=== PATIENT | female | born 1965 | race Two or more races ===

== ENCOUNTER 2023-09-02 22:31 | Emergency (ER) | payer OTHER ==
[~2023-09-02] VITALS: Ht 154.9 cm; Wt 77.1 kg
[2023-09-02] MEDS ORDERED: FAMOtidine 10 MG/ML (4ML VIAL) IV PUSH ONE (22:45)
[2023-09-02] MEDS ORDERED: HYOSCYAMINE SULFATE 0.125 MG TAB.SUBL SL ONE (22:45)
[2023-09-02] MEDS ORDERED: ONDANSETRON HCL 2 MG/ML VIAL IV ONE (22:45)
[2023-09-02] MEDS ORDERED: 0.9 % SODIUM CHLORIDE 1,000 ML IV ONE (22:45)
[2023-09-02] MEDS ORDERED: PROMETHAZINE HCL 50 MG/ML AMPUL IM ONE (23:30)
[2023-09-03 00:07] LABS: HEMATOCRIT 39.5 % (36.0-45.00); HEMOGLOBIN 13.2 g/dL (12.0-15.00); MEAN CELL VOLUME 89.5 fL (80.00-100.00); MEAN CORPUSCULAR HEMOGLOBIN 29.8 pg (27.00-32.0); MEAN CORPUSCULAR HGB CONC 33.3 g/dl (32.0-36.0); PLATELET COUNT 358 K/uL (150-450); RED BLOOD COUNT 4.42 M/uL (4.00-6.00); RED CELL DISTRIBUTION WIDTH 13.5 % (11.5-14.5)
[2023-09-03 00:33] LABS: ALBUMIN 4.3 gm/dL (3.4-5.0); BILIRUBIN TOTAL 0.53 mg/dL (0.3-1.2); CALCIUM 10.3 mg/dL (8.5-10.1); CREATININE SERUM 0.93 mg/dL (0.55-1.02); GFR 61.49; GLOBULINA 4.3 G/DL (2.4-3.5); POTASSIUM 3.25 mEq/L (3.5-5.1); TOTAL PROTEIN 8.6 gm/dL (6.4-8.2)
[2023-09-03] MEDS ORDERED: PROCHLORPERAZINE EDISYLATE 5 MG/ML AMPUL IM STA (01:34)
[2023-09-03 02:20] LABS: ABG PH 7.385 (7.35-7.45); ABG PO2 109.1 mmHg (80-100); ABG pCO2 27.9 mmHg (35-45); BICARBONATE 16.3 mmol/l (23-25); Tco2 17.2 mmol/l
[2023-09-03 02:21] LABS: allen test SATISFACTORY; o2 21 %; puncture site RADIAL LEFT
[2023-09-03] MEDS ORDERED: PHENERGAN25 MG PO (04:23)
== END 2023-09-03 04:33 ==
LOC: ER 22:31
PROVIDERS: General Practice
DX: K52.89 Other specified noninfective gastroenteritis and colitis (principal); Z88.0 Allergy status to penicillin; Z88.2 Allergy status to sulfonamides; Z20.822 Contact with and (suspected) exposure to COVID-19
CPT/HCPCS: 36415; 82803; 96365; 96366; 99282; J2250; J2405; J3490; J7030